=== PATIENT | male | born 1975 | race Two or more races ===

== ENCOUNTER 2018-09-24 19:21 | Emergency (ER) | payer MEDICAID ==
[~2018-09-24] VITALS: Ht 167.6 cm; Wt 64.0 kg
[~2018-09-24 19:21] MED LIST: NKM
--- NOTE | 2018-09-24 19:52 | NUR ---
ED Nurse Note: PAtient presents with abdominal pain 10/10, reports buring sensation and nausea along with fever.
[2018-09-24 19:55] VITALS: BP 111/68
[2018-09-24] MEDS ORDERED: Acetaminophen 500mg (ES) tab ORAL ONE (20:15)
[2018-09-24 20:44] LABS: APPEARANCE,URINE CLEAR; BILIRUBIN, URINE NEGATIVE (NEGATIVE); GLUCOSE, URINE (UA) NEGATIVE (NEGATIVE); KETONES,URINE NEGATIVE (NEGATIVE); LEUKOCYTE ESTERASE ,URINE 1+ (NEGATIVE); NITRITE,URINE NEGATIVE (NEGATIVE); PH,URINE 6.5 (4.5-8.0); PROTEIN,URINE 1+ (NEGATIVE); UROBILINOGEN,URINE NORMAL MG/DL (0.0-1.0)
[2018-09-24 20:48] LABS: BASOPHILS % (AUTO) 0.5 % (0.0-2.0); EOSINOPHILS % (AUTO) 0.2 % (0.0-3.0); HEMATOCRIT 41.8 % (42.0-52.0); HEMOGLOBIN 14.4 G/DL (14.2-18.0); LYMPHOCYTES % (AUTO) 11.2 % (20.0-45.0); MEAN CORPUSCULAR VOLUME 86 FL (80-99); MONOCYTES % (AUTO) 9.1 % (1.0-10.0); NEUTROPHILS % (AUTO) 79.1 % (45.0-75.0); PLATELET COUNT 137 K/UL (150-450); RED BLOOD COUNT 4.84 M/UL (4.70-6.10); RED CELL DISTRIBUTION WIDTH 11.4 % (11.6-14.8); WHITE BLOOD COUNT 6.3 K/UL (4.8-10.8)
[2018-09-24 20:49] LABS: COLOR,URINE ORANGE
--- NOTE | 2018-09-24 20:59 | Emergency Room Report ---
History of Present Illness General Chief Complaint: Flu Like Symptoms Source: Patient Present Illness HPI 43-year-old male presenting with fever, chills, cough, nausea vomiting, slight epigastric pain. Says it's been going on for the last 2 days. Also at times gets body aches. Did not get the flu vaccine. Has been able to tolerate some fluid. Denies any other medical problems are and no complaints Allergies: Coded Allergies: No Known Allergies (Unverified , 09/26/13) Patient History Past Medical History: see triage record Past Surgical History: none Pertinent Family History: none Reviewed Nursing Documentation: PMH: Agreed; PSxH: Agreed Nursing Documentation-PMH Past Medical History: No Stated History Review of Systems All Other Systems: negative except mentioned in HPI Physical Exam Vital Signs Date Time Temp Pulse Resp B/P (MAP) Pulse Ox O2 Delivery O2 Flow Rate FiO2 09/24/18 19:48 101.7 107 16 111/68 96 Room Air Sp02 EP Interpretation: reviewed, normal General Appearance: alert, GCS 15, non-toxic, mild distress Head: normocephalic, atraumatic Eyes: bilateral eye normal inspection, bilateral eye PERRL, bilateral eye EOMI ENT: normal ENT inspection, normal pharynx, normal voice, moist mucus membranes Neck: normal inspection, full range of motion, supple Respiratory: normal inspection, lungs clear, normal breath sounds, no respiratory distress, no retraction, no wheezing, speaking full sentences, chest symmetrical Cardiovascular #1: normal inspection, regular rate, rhythm, no edema, normal capillary refill Cardiovascular #2: 2+ radial (R), 2+ radial (L) Gastrointestinal: normal inspection, non tender, soft, non-distended, no guarding Genitourinary: no CVA tenderness Musculoskeletal: normal inspection, back normal, normal range of motion, non- tender Neurologic: normal inspection, alert, oriented x3, responsive, motor strength/ tone normal, sensory intact, normal gait, speech normal Psychiatric: normal inspection, judgement/insight normal, memory normal Skin: normal inspection, normal color, no rash, warm/dry, well hydrated, normal turgor Medical Decision Making Diagnostic Impression: Primary Impression: Viral URI Additional Impression: UTI (urinary tract infection) ER Course 43-year-old male, fever chills cough nausea vomiting DDX: URI, pneumonia, influenza, gastroenteritis, gastritis Plan: Obtain labs, ua, ucx, CXR, EKG ER course: Patient has remained stable during ED stay. Given fluids and Zofran. after fluids feeling much better tolerating PO urine appears slightly cloudy with bacteria, so given keflex Disposition: Patient is to be discharged to home. Prescriptions given are tamiflu and keflex for possible UTI Patient is instructed to follow up with their primary care doctor within 5 days. Please note that this Emergency Department Report was dictated using [employer] technology software, occasionally this can lead to erroneous entry secondary to interpretation by the dictation equipment Chest X-ray CXR: Ordered: Yes 1 view Indication: cough EP interpretation: Yes Interpretation: No consolidation, no effusion, no PTX, no acute cardiopulmonary disease Impression: No acute disease Electronically signed by Chris Morris MD Laboratory Tests Test 09/24/18 20:20 09/24/18 20:25 Urine Color [place] Urine Appearance Clear Urine pH 6.5 (4.5-8.0) Urine Specific [place] 1.010 (1.005-1.035) Urine Protein 1+ (NEGATIVE) H Urine Glucose (UA) Negative (NEGATIVE) Urine Ketones Negative (NEGATIVE) Urine Blood Negative (NEGATIVE) Urine Nitrite Negative (NEGATIVE) Urine Bilirubin Negative (NEGATIVE) Urine Urobilinogen Normal MG/DL (0.0-1.0) Urine Leukocyte Esterase 1+ (NEGATIVE) H Urine RBC 0 /HPF (0 - 0) Urine WBC 0-2 /HPF (0 - 0) Urine Squamous Epithelial Cells Occasional /LPF Urine Bacteria Occasional /HPF (NONE) White Blood Count 6.3 K/UL (4.8-10.8) Red Blood Count 4.84 M/UL (4.70-6.10) Hemoglobin 14.4 G/DL (14.2-18.0) Hematocrit 41.8 % (42.0-52.0) L Mean Corpuscular Volume 86 FL (80-99) Mean Corpuscular Hemoglobin 29.8 PG (27.0-31.0) Mean Corpuscular Hemoglobin Concent 34.5 G/DL (32.0-36.0) Red Cell Distribution Width 11.4 % (11.6-14.8) L Platelet Count 137 K/UL (150-450) L Mean Platelet Volume 11.0 FL (6.5-10.1) H Neutrophils (%) (Auto) 79.1 % (45.0-75.0) H Lymphocytes (%) (Auto) 11.2 % (20.0-45.0) L Monocytes (%) (Auto) 9.1 % (1.0-10.0) Eosinophils (%) (Auto) 0.2 % (0.0-3.0) Basophils (%) (Auto) 0.5 % (0.0-2.0) Sodium Level 136 MMOL/L (136-145) Potassium Level 3.8 MMOL/L (3.5-5.1) Chloride Level 101 MMOL/L (98-107) Carbon Dioxide Level 25 MMOL/L (21-32) Anion Gap 10 mmol/L (5-15) Blood Urea Nitrogen 18 mg/dL (7-18) Creatinine 1.0 MG/DL (0.55-1.30) Estimate Glomerular Filtration Rate > 60 mL/min (>60) Glucose Level 108 MG/DL (74-106) H Calcium Level 8.5 MG/DL (8.5-10.1) Total Bilirubin 1.2 MG/DL (0.2-1.0) H Direct Bilirubin 0.2 MG/DL (0.0-0.3) Aspartate Amino Transferase (AST) 26 U/L (15-37) Alanine Aminotransferase (ALT) 32 U/L (12-78) Alkaline Phosphatase 67 U/L (46-116) Total Protein 7.9 G/DL (6.4-8.2) Albumin 3.7 G/DL (3.4-5.0) Globulin 4.2 g/dL Albumin/Globulin Ratio 0.9 (1.0-2.7) L Last Vital Signs Date Time Temp Pulse Resp B/P (MAP) Pulse Ox O2 Delivery O2 Flow Rate FiO2 09/24/18 19:48 101.7 107 16 111/68 96 Room Air Disposition: HOME, SELF-CARE Condition: Stable Scripts Cephalexin* (KEFLEX*) 500 Mg Capsule 500 MG ORAL EVERY 6 HOURS for 7 Days, #28 CAP Prov: Retino,Clairose M.D. 09/24/18 Oseltamivir Phosphate (Tamiflu) 75 Mg Capsule 75 MG ORAL TWICE A DAY for 5 Days, #10 CAP Prov: Retino,Clairose M.D. 09/24/18 Referrals: NOT CHOSEN [facility]/,REFERRING (PCP) Chris Morris M.D. Sep 24, 2018 20:59
[2018-09-24 21:00] LABS: ANION GAP 10 mmol/L (5-15); BLOOD UREA NITROGEN 18 mg/dL (7-18); CALCIUM 8.5 MG/DL (8.5-10.1); CARBON DIOXIDE 25 MMOL/L (21-32); CHLORIDE 101 MMOL/L (98-107); POTASSIUM 3.8 MMOL/L (3.5-5.1); SODIUM 136 MMOL/L (136-145)
[2018-09-24 21:05] VITALS: BP 105/68
--- NOTE | 2018-09-24 21:06 | NUR ---
ED Nurse Note: Patient is resting comfortably, fluids are running ,patient has no reports of pain and fever is breaking.
[2018-09-24 21:11] LABS: ALANINE AMINOTRANSFERASE 32 U/L (12-78); ALBUMIN 3.7 G/DL (3.4-5.0); ALBUMIN/GLOBULIN RATIO 0.9 (1.0-2.7); ALKALINE PHOSPHATASE 67 U/L (46-116); ASPARTATE AMINO TRANSFERASE 26 U/L (15-37); BILIRUBIN,TOTAL 1.2 MG/DL (0.2-1.0)
[2018-09-24 21:13] LABS: BILIRUBIN,DIRECT 0.2 MG/DL (0.0-0.3)
[2018-09-24] MEDS ORDERED: Cephalexin 500mg cap ORAL ONE (21:15)
[2018-09-24] MEDS ORDERED: TAMIFLU75 MG ORAL (21:16)
[2018-09-24] MEDS ORDERED: CEPHALEXIN500 MG ORAL (21:16)
[2018-09-24 21:39] VITALS: BP 105/68
--- NOTE | 2018-09-24 21:39 | NUR ---
ED Nurse Note: patient discharged in stable condition, ambulatory with steady gait, IV removed, ID band removed, patient verbalized understanding of all instuctions. patient had no questions. Patientt planned to drive home.
--- NOTE | 2018-09-25 10:09 | Diagnostic Imaging Report ---
Indication: Cough Comparison: None A single view chest radiograph was obtained. Findings: There is a rounded density in the right midlung which may be a small nodule. This is probably calcified. Suggest further evaluation of this for clarification and more definitive evaluation. PA lateral view of the chest may be helpful. Heart size is normal. No pleural effusion identified. The diaphragmatic contour is smooth. The bones are unremarkable. IMPRESSION: Small nodular density projected over the right midlung, possibly calcified. Suggest repeating the examination is a PA and lateral view to evaluate this further.
== END 2018-09-24 21:39 | disposition home or self-care (01) ==
LOC: EMR 20:02
DX: J06.9 Acute upper respiratory infection, unspecified (principal); B34.9 Viral infection, unspecified; N39.0 Urinary tract infection, site not specified
CPT/HCPCS: 36415; 71045; 80053; 81003; 82248; 85025; 96361; 96374; 99284; J2405; S0028